=== PATIENT | female | born 1965 | race Caucasian/White ===

== ENCOUNTER 2020-07-07 18:09 | Inpatient (IN) | payer MEDICARE ==
[~2020-07-07] VITALS: Ht 167.6 cm; Wt 75.3 kg
--- NOTE | 2020-07-07 19:20 | NUR ---
ASSUMED CARE. BIBMARCELLUS FROM [facility] C/O AGITATION. PT AAOX3, NO ACUTE DISTRESS NOTED, RESP EVEN AND UNLABORED. 1:1 SITTER AT BEDSIDE FOR PT SAFETY. PT CALM AND COOPERATIVE AT THIS TIME.
[2020-07-07 19:25] LABS: BASOPHILS % (AUTO) 0.7 % (0.0-2.0); EOSINOPHILS % (AUTO) 2.1 % (0.0-6.0); HEMATOCRIT 40 % (33-45); HEMOGLOBIN 13.3 g/dL (11.5-14.8); LYMPHOCYTES # (AUTO) 1.6 /CMM (0.8-4.8); LYMPHOCYTES % (AUTO) 30.3 % (20.0-44.0); MEAN CORPUSCULAR HGB CONC 33 g/dl (31.0-36.0); MEAN CORPUSCULAR VOLUME 96 fL (82-100); MONOCYTES # (AUTO) 0.4 /CMM (0.1-1.30); MONOCYTES % (AUTO) 6.7 % (2.0-12.0); NEUTROPHILS # (AUTO) 3.2 /CMM (1.8-8.9); NEUTROPHILS % (AUTO) 60.2 % (43.0-81.0); PLATELET COUNT (AUTO) 186 /CMM (150-450); RED BLOOD CELL COUNT(AUTO) 4.17 MIL/uL (4.0-5.2); WHITE BLOOD COUNT (AUTO) 5.4 K/uL (4.3-11.0)
--- NOTE | 2020-07-07 19:36 | NUR ---
FOOD TRAY PROVIDED TO PT PER PT REQUEST.
[2020-07-07 19:37] LABS: CALCIUM, SERUM 9.8 mg/dL (8.5-10.1); CARBON DIOXIDE 30 mmol/L (21-32); CHLORIDE 108 mmol/L (98-107); CREATININE 1.1 mg/dL (0.6-1.3); GLUCOSE 113 mg/dL (74-106); POTASSIUM 3.8 mmol/L (3.5-5.1); SODIUM SERUM 143 mmol/L (136-145); UREA NITROGEN, BLOOD 16 mg/dL (7-18)
[2020-07-07 19:42] LABS: ALANINE AMINOTRANSFERASE 26 U/L (12-78); ALBUMIN 3.5 g/dL (3.4-5.0); ALCOHOL, BLOOD < 3 mg/dL (0-0); ALKALINE PHOSPHATASE 53 U/L (46-116); ASPARTATE AMINOTRANSFERASE 18 U/L (15-37); BILIRUBIN,DIRECT 0.1 mg/dL (0.0-0.2); BILIRUBIN,TOTAL 0.3 mg/dL (0.2-1.0); TOTAL PROTEIN, SERUM 6.5 g/dL (6.4-8.2)
[2020-07-07 19:43] LABS: ACETAMINOPHEN 0 ug/ml (10-30)
--- NOTE | 2020-07-07 19:45 | NUR ---
COVID SWAB TEST DONE AND SENT TO LAB
--- NOTE | 2020-07-07 20:24 | NUR ---
call from lab, rapid covid negative.
--- NOTE | 2020-07-07 21:29 | NUR ---
KRIS KISS SETTER HAND AT BEDSIDE TO NESTOR SMITH
--- NOTE | 2020-07-07 21:42 | NUR ---
SUNI 214-2
--- NOTE | 2020-07-07 22:02 | NUR ---
REPORT GIVEN TO CHRISTIAN ARRIAZA FOR CINDY
[2020-07-08 00:20] VITALS: BP 138/80
--- NOTE | 2020-07-08 00:20 | NUR ---
GPS RN-NOTE: ADMISSION ADMITTED A 55 YR OLD FEMALE, FROM [facility] TO [facility] ER TO GPS UNIT. UPON EVALUATION IN ER PATIENT WAS VISIBLE UPSET & FRUSTRATED. PT. DID NOT RESPOND TO QUESTIONS PRESENTED. PER REFERRAL FROM [facility], PT. IS HAVING INCREASING AGITATION, VERBALLY ABUSIVE TOWARDS STAFF, SCREAMING & YELLING, TRYING TO ELOPE FROM FACILITY & RUNNING DOWN THE HALLWAYS. UPON FACE TO FACE ASSESSMENT, PT. IS A & O X 2, CONFUSED & FORGETFUL, AGGRESSIVE, UNCOOPERATIVE, REFUSES TO ANSWER MOST OF THE QUESTIONS DURING INTERVIEW. BLUNTED AFFECT, DELAYED SPEECH, ANXIOUS, EASILY AGITATED, FRUSTRATED, WANTED TO BE LEFT ALONE, DENIES SI/HI/AVH AT THIS TIME. CONTINENT. AMBULATORY WITH WALKER & STAND BY ASSIST, UNSTEADY GAIT, FALL RISK. PT. REFUSED SKIN ASSESSMENT & FACE PICTURE, GOT VERY AGITATED & PULLED BLANKETS OVER HER FACE. MED RECON DONE BY DR. EDGE. MRSA & COVID 19 WAS DONE IN ER. PT'S RIGHTS HANDBOOK AND A GUIDE TO PRESCRIPTION MEDICATIONS GIVEN. IN NO APPARENT DISTRESS. BELONGINGS WERE INVENTORIED AND CHECKED FOR CONTRABAND. PT. IS UNDER CARE OF PSYCHIATRIC DR. CAVAZOS AND THE MEDICAL CARE OF DR. EDGE. BED LOCKED AND PLACED IN LOWEST POSITION TO MAINTAIN SAFETY. BED ALARM ON. FALL PRECAUTIONS IMPLEMENTED. PER PATIENT THERE IS NO ONE TO NOTIFY ABOUT HER ADMISSION AT [facility]. WILL CONTINUE TO MONITOR Q15 MINS. FOR SAFETY AND BEHAVIOR.
--- NOTE | 2020-07-08 00:28 | NUR ---
PT TRANSFERRED TO ROOM IN STABLE CONDITION
[2020-07-08] MEDS ORDERED: MAG HYDROX/AL HYDROX/SIMETH 30 ML UDC PO PRN (00:30)
[2020-07-08] MEDS ORDERED: TEMAZEPAM 7.5 MG CAPSULE PO PRN (00:30)
[2020-07-08] MEDS ORDERED: MAGNESIUM HYDROXIDE 30 ML UDC PO PRN (00:30)
[2020-07-08] MEDS ORDERED: RISP2TAB5 PO (00:43)
[2020-07-08] MEDS ORDERED: LIDOCAINE PATCH (00:43)
[2020-07-08] MEDS ORDERED: LORA-259 PO (00:43)
[2020-07-08] MEDS ORDERED: IBUP-1953 PO (00:43)
[2020-07-08] MEDS ORDERED: GABA-536 PO (00:43)
[2020-07-08] MEDS ORDERED: LIDOCAINE 4% PATCH (00:43)
[2020-07-08] MEDS ORDERED: ALEN70TA3 PO (00:43)
[2020-07-08] MEDS ORDERED: BLOOD SUGAR DIAGNOSTIC 1 EACH STRIP IN ONE (01:00)
--- NOTE | 2020-07-08 01:10 | NUR ---
GPS RN NOTE PT WAS ORDERED FOR UNSTEADY GAIT. PATIENT IS SLEEPING COMFORTABLY AT THIS TIME.
--- NOTE | 2020-07-08 06:54 | NUR ---
GPS RN NOTE CALLED [phone] NUMBER AVAILABLE ON FACE SHEET & SPOKE TO MORELIA AT [facility] & MORELIA STATED THAT PATIENT WAS DISCHARGED TO ANOTHER PLACE FEW DAYS AGO. THERE IS NO OTHER NUMBER GIVEN TO NOTIFY REGARDING PATIENT'S ADMISSION AT [facility], GPS UNIT. PATIENT ALSO STATED," THERE IS NO ONE TO CALL TO NOTIFY." WILL CONTINUE TO MONITOR.
[2020-07-08] MEDS: GABAPENTIN 400 MG CAPSULE PO SCH ×3 (08:57→17:36)
[2020-07-08] MEDS: IBUPROFEN 400 MG TABLET PO PRN (09:03)
--- NOTE | 2020-07-08 09:04 | NUR ---
GIVEN MOTRIN FOR RT. HIP PAIN AND BACK PAIN.
[2020-07-08] MEDS: LORAZEPAM 0.5 MG TABLET PO PRN (09:44)
--- NOTE | 2020-07-08 09:44 | NUR ---
aston crespo for anxiety,sobbing almost continually.on phone
[2020-07-08] MEDS: risperiDONE 1 MG TABLET PO SCH ×2 (15:02→17:00)
[2020-07-08 16:18] VITALS: BP 124/75
--- NOTE | 2020-07-08 16:42 | NUR ---
home med of risperdal started.
--- NOTE | 2020-07-08 18:56 | NUR ---
eve. pereyra held as pt. groggy to lethargic.hob elevated resp. even and unlabored.skin warm and dry.
--- NOTE | 2020-07-09 07:00 | NUR ---
precision devices inspector/tester notes pt remains sleeping comfortably in bed without any distress or any discomfort noted. she refused to have draw blood test today even i explained what the purpose of it . no signs of any behaviora outburst noted throughout the night. she's calmed and quiet. kept her warm and comfortable at all times. will continue Q 15 minutes monitoring for safety and behavior. will endorse to am nurse for continuity of care.
[2020-07-09] MEDS: LORAZEPAM 0.5 MG TABLET PO PRN ×2 (07:47→14:05)
--- NOTE | 2020-07-09 07:49 | NUR ---
RN NOTE- ANXIOUS TEARFUL RESTLESS. ATIVAN 0.5 MG GIVEN
[2020-07-09] MEDS: GABAPENTIN 400 MG CAPSULE PO SCH ×3 (08:15→16:32)
[2020-07-09] MEDS: risperiDONE 1 MG TABLET PO SCH ×2 (08:15→16:32)
--- NOTE | 2020-07-09 08:45 | NUR ---
RN NOTE-ATIVAN 0.5 MG RELIEVED PTS ANXIETY. PT CALM
--- NOTE | 2020-07-09 09:00 | NUR ---
RN NOTE- PT ALERT ORIENTED TO SELF, DISORGANIZED, CONFUSED LABILE CRYING AND IRRITABLE. MED COMPLIANT PO INTAKE FAIR
--- NOTE | 2020-07-09 14:05 | NUR ---
RN NOTE- C/O ANXIOUS RESTLESS FEELING, REQUESTING PRN RX. ATIVAN 0.5 MG GIVEN
[2020-07-09 16:00] VITALS: BP 150/64
--- NOTE | 2020-07-09 19:46 | NUR ---
GPS RN OPENING NOTES PATIENT RECEIVED RESTING IN BED COMFORTABLY; A/OX2, BREATHING EVEN AND UNLABORED; NO SOB NOTED; TOLERATING ROOM AIR WELL; PATIENT EASILY AGITATED, REFUSES TO ANSWER QUESTIONS/UNCOOPERATIVE AT TIMES; PATIENT REFUSING SKIN ASSESSMENT; CHARGE NURSE AWARE; PATIENT EDUCATED ON USE OF CALL LIGHT; SAFETY PRECAUTIONS IMPLEMENTED; BED LOCKED IN LOW POSITION; SIDE RAILSX2; WILL CONTINUE TO MONITOR Q15 MINS WITH THE HELP OF STAFF TO MAINTAIN SAFETY
[2020-07-09 20:00] VITALS: BP 122/77
[2020-07-10] MEDS: LORAZEPAM 0.5 MG TABLET PO PRN ×2 (07:16→14:36)
[2020-07-10] MEDS: IBUPROFEN 400 MG TABLET PO PRN (07:16)
--- NOTE | 2020-07-10 07:17 | NUR ---
RN NOTE- PT W C/O BACK PAIN AND ANXIETY. MOTRIN 400 MG AND ATIVAN 0.5 MG GIVEN
[2020-07-10 08:00] VITALS: BP 147/85
[2020-07-10] MEDS: risperiDONE 1 MG TABLET PO SCH ×2 (08:07→16:26)
[2020-07-10] MEDS: GABAPENTIN 400 MG CAPSULE PO SCH ×3 (08:07→16:26)
--- NOTE | 2020-07-10 08:30 | NUR ---
RN NOTE- PT CALMER, MEDICATIONS EFFECTIVE. QUIET IN ROOM.
--- NOTE | 2020-07-10 09:00 | NUR ---
RN NOTE- UNCHANGED, MOVED PT TO ANOTHER ROOM PREVIOUS ROOM MATE KEEPING HER AWAKE, PT ALERT ORIENTED TO SELF, DISORGANIZED, CONFUSED LABILE CRYING AND IRRITABLE. MED COMPLIANT PO INTAKE FAIR
--- NOTE | 2020-07-10 11:45 | NUR ---
RN NOTE- DR MACY LUA [facility] MED W PT. PT BECAME AGITATED AND YELLING SCREAMING AND POSTURING. PT YELLED AT THIS RN, 'JUST GIVE ME A SHOT" ZYPREXA 5 MG IM ORDERED.
--- NOTE | 2020-07-10 11:59 | NUR ---
RN NOTE- ZYPREXA 5 MG IM GIVEN . PT PASSIVE, LAY DOWN ON BED. STAFF AT SIDE TO ASSIST. TOLERATED WELL.
[2020-07-10] MEDS ORDERED: OLANZAPINE 10 MG VIAL IM ONE (12:00)
--- NOTE | 2020-07-10 12:46 | NUR ---
RN NOTE- PT CALMER , QUIET IN ROOM EATING FOOD. DIRECTABLE
--- NOTE | 2020-07-10 14:36 | NUR ---
RN NOTE- INCREASING AGITATION, TEARFULNESS , YELLING AT STAFF. ATIVAN 0.5 MG GIVEN
--- NOTE | 2020-07-10 14:37 | NUR ---
SNF Contact: SW contacted Jeison ([phone]) from [facility] and inquired about whether the pt can return to the facility. He stated he will inform the SW the following day.
--- NOTE | 2020-07-10 14:37 | NUR ---
Initial Discharge Plan: Pt currently resides at [facility] located at [id number] [place] [id number]; . Per pt, she would like to go back. SW will work with the pt and the MD regarding appropriate discharge planning. SW will form a safe and proper discharge.
[2020-07-10] MEDS ORDERED: LORAZEPAM 0.5 MG TABLET PO STA (14:44)
[2020-07-10 16:01] VITALS: BP 133/51
--- NOTE | 2020-07-10 16:09 | NUR ---
Individual Intervention with the Pt: RADHA met with the pt at bedside and called the [facility] ([phone]) to inquire about her social security checks. RADHA spoke to Alexandre in the criminal justice social worker department and he stated that the pts payee handles all of her finances and that the pt does not have any checks at the facility.
[2020-07-10] MEDS: BENZTROPINE MESYLATE (1 MG) 1 MG TABLET PO SCH (16:26)
[2020-07-10] MEDS: OXCARBAZEPINE 150 MG TABLET PO SCH (16:26)
[2020-07-10 19:52] VITALS: BP 121/80
[2020-07-11 08:00] VITALS: BP 127/60
[2020-07-11] MEDS: GABAPENTIN 400 MG CAPSULE PO SCH ×3 (08:11→17:42)
[2020-07-11] MEDS: risperiDONE 1 MG TABLET PO SCH ×2 (08:12→17:43)
[2020-07-11] MEDS: OXCARBAZEPINE 150 MG TABLET PO SCH ×3 (08:12→17:43)
[2020-07-11] MEDS: BENZTROPINE MESYLATE (1 MG) 1 MG TABLET PO SCH ×2 (08:12→17:42)
[2020-07-11] MEDS ORDERED: LORAZEPAM INJ 2 MG/ML VIAL IM STA (09:00)
[2020-07-11] MEDS ORDERED: HALOPERIDOL LACTATE INJ 5 MG/ML VIAL IM STA (09:00)
[2020-07-11] MEDS ORDERED: BENZTROPINE MESYLATE (2MG/2ML) 2 MG/2 ML AMPUL IM STA (09:00)
--- NOTE | 2020-07-11 09:05 | NUR ---
RN NOTE:PATIENT AGITATED ,CRYING AND HITTING HERSELF IN THE ROOM ,NOT FOLLOWING DIRECTIONS ,OFFER 1:1 ,OFFER ATIVAN PO PATIENT REFUSED ,DR. CAVAZOS NOTIFIED WITH NEW ORDER HALDOL 5MG IM AND ATIVAN 2MG IM COGENTIN 1MG IM ,ALL ORDERS CARRIED OUT PATIENT VOLUNTARILY ACCEPT THE INJECTION STATED "GIVE ME MY SHOT".WILL CONTINUE TO MONITOR .
[2020-07-11] MEDS: ACETAMINOPHEN 325 MG TABLET PO PRN (09:14)
[2020-07-11] MEDS: LORAZEPAM 1 MG TABLET PO SCH ×2 (11:51→19:22)
--- NOTE | 2020-07-11 13:56 | NUR ---
Individual Intervention with the Pt: SW met with the pt at bedside and informed her that her Payee cannot mail her checks to the hospital because we do not know how long she will be in the hospital and how we can make sure that she gets her money. Pt became agitated with the SW and repeatedly stated that she will not go back to the halfway that she came from and instead will go to [place]. She stated that if she does not get her money then the hospital will have to figure out her transportation.
--- NOTE | 2020-07-11 14:22 | NUR ---
SNF Contact: RADHA contacted Jeison ([phone]) from [facility] who stated that the facility does not want the pt to return per their DON. Jeison stated that the pt has plenty of days left and should be able to get placed an alternate facility. RADHA stated that she will attempt to place her elsewhere.
[2020-07-11 16:00] VITALS: BP 135/88
[2020-07-11 19:44] VITALS: BP 153/72
[2020-07-12 03:12] VITALS: BP 114/69
[2020-07-12] MEDS: LORAZEPAM 1 MG TABLET PO SCH ×3 (03:22→19:56)
[2020-07-12 08:00] VITALS: BP 102/57
[2020-07-12] MEDS: BENZTROPINE MESYLATE (1 MG) 1 MG TABLET PO SCH ×2 (08:01→17:36)
[2020-07-12] MEDS: OXCARBAZEPINE 150 MG TABLET PO SCH ×3 (08:01→17:36)
[2020-07-12] MEDS: risperiDONE 1 MG TABLET PO SCH ×2 (08:01→17:35)
[2020-07-12] MEDS: LORAZEPAM 1 MG TABLET PO PRN (08:02)
[2020-07-12] MEDS: GABAPENTIN 400 MG CAPSULE PO SCH ×3 (08:02→17:35)
--- NOTE | 2020-07-12 08:02 | NUR ---
RN NOTE: PATIENT IRRITABLE AND ANXIOUS MEDICATED WITH ATIVAN 1MG PO X1 WILL CONTINUE TO MONITOR .
--- NOTE | 2020-07-12 15:08 | NUR ---
SNF Referral: RADHA faxed a referral to [facility] with attention to Adi to the fax number: [phone].
[2020-07-12 16:00] VITALS: BP 121/95
[2020-07-12 20:00] VITALS: BP 120/77
[2020-07-13] MEDS: LORAZEPAM 1 MG TABLET PO SCH ×3 (03:32→19:27)
[2020-07-13 06:45] LABS: BASOPHILS % (AUTO) 0.7 % (0.0-2.0); EOSINOPHILS % (AUTO) 1.9 % (0.0-6.0); HEMATOCRIT 42 % (33-45); LYMPHOCYTES # (AUTO) 1.2 /CMM (0.8-4.8); LYMPHOCYTES % (AUTO) 29.9 % (20.0-44.0); MEAN CORPUSCULAR HGB CONC 33 g/dl (31.0-36.0); MEAN CORPUSCULAR VOLUME 94 fL (82-100); MONOCYTES # (AUTO) 0.3 /CMM (0.1-1.30); MONOCYTES % (AUTO) 8.6 % (2.0-12.0); NEUTROPHILS # (AUTO) 2.3 /CMM (1.8-8.9); NEUTROPHILS % (AUTO) 58.9 % (43.0-81.0); PLATELET COUNT (AUTO) 159 /CMM (150-450); RED BLOOD CELL COUNT(AUTO) 4.46 MIL/uL (4.0-5.2)
[2020-07-13 07:44] LABS: ALBUMIN 3.3 g/dL (3.4-5.0); BILIRUBIN,TOTAL 0.4 mg/dL (0.2-1.0); CALCIUM, SERUM 9.9 mg/dL (8.5-10.1); CREATININE 0.9 mg/dL (0.6-1.3); POTASSIUM 4.2 mmol/L (3.5-5.1); TOTAL PROTEIN, SERUM 6.2 g/dL (6.4-8.2)
[2020-07-13 08:00] VITALS: BP 116/88
[2020-07-13] MEDS: ALENDRONATE 70 MG TABLET PO SCH (08:21)
[2020-07-13] MEDS: risperiDONE 1 MG TABLET PO SCH ×2 (08:25→16:38)
[2020-07-13] MEDS: BENZTROPINE MESYLATE (1 MG) 1 MG TABLET PO SCH ×2 (08:26→16:37)
[2020-07-13] MEDS: ACETAMINOPHEN 325 MG TABLET PO PRN (08:26)
[2020-07-13] MEDS: GABAPENTIN 400 MG CAPSULE PO SCH ×3 (08:26→16:37)
[2020-07-13] MEDS: OXCARBAZEPINE 150 MG TABLET PO SCH ×3 (08:26→16:37)
--- NOTE | 2020-07-13 08:30 | NUR ---
GPS/RN-NOTES PATIENT REQUESTING TYLENOL FOR HEADACHE, TYLENOL 650MG P.O GIVEN PRN ORDER.
[2020-07-13] MEDS ORDERED: ALENDRONATE 70 MG TABLET PO SCH (09:00)
[2020-07-13 16:00] VITALS: BP 134/56
[2020-07-13 20:02] VITALS: BP_SYST 112; BP_SYST 122; BP_DIAS 65; BP_DIAS 67
[2020-07-14] MEDS: LORAZEPAM 1 MG TABLET PO SCH ×3 (03:04→19:17)
--- NOTE | 2020-07-14 06:31 | NUR ---
GPS RN NOTES: PT. RESTING IN HER ROOM, NO S/S OF DISTRESS NOTED ,NO CHANGE OF CONDITION NOTED , ALL CARE NEEDS MET ANTICIPATED. MED COMPLIANT , ANXIOUS EASILY AGITAED PARANOID, DISHELVED ,NEEDY DEMENDING, FORGETFUL ,NEEDS FREQUENTLY REDIRECTIONS ,WILL CONTINUE TO MONITOR FOR SAFETY BEHAVIOR, AND ENDORSE TO AM SHIFT FOR CONTINUITY OF CARE.
[2020-07-14 07:57] VITALS: BP 136/75
[2020-07-14] MEDS: BENZTROPINE MESYLATE (1 MG) 1 MG TABLET PO SCH ×2 (08:41→17:18)
[2020-07-14] MEDS: OXCARBAZEPINE 150 MG TABLET PO SCH ×3 (08:41→17:19)
[2020-07-14] MEDS: risperiDONE 1 MG TABLET PO SCH ×2 (08:42→17:18)
[2020-07-14] MEDS: GABAPENTIN 400 MG CAPSULE PO SCH ×3 (08:43→17:19)
--- NOTE | 2020-07-14 12:55 | NUR ---
SNF Contact: Phoebe ([phone]) from [facility] called the SW and stated that the pt was accepted to their facility.
--- NOTE | 2020-07-14 12:57 | NUR ---
Individual Intervention with the pt: SW informed the pt that she was accepted to [facility] and informed her that she will be discharged on Friday.
--- NOTE | 2020-07-14 15:00 | NUR ---
SNF Contact: Laura ([phone]) from [facility] contacted the and stated that they are reviewing the referral.
--- NOTE | 2020-07-14 15:01 | NUR ---
SNF Contact: Remy ([phone]) from [facility] stated that he received the referral for the pt and that he would like updated notes. ARDHA faxed updated notes to [phone].
[2020-07-14 16:00] VITALS: BP 145/98
[2020-07-14 19:46] VITALS: BP 131/64
[2020-07-15] MEDS: LORAZEPAM 1 MG TABLET PO SCH ×3 (03:02→19:34)
[2020-07-15] MEDS: ACETAMINOPHEN 325 MG TABLET PO PRN (06:53)
--- NOTE | 2020-07-15 06:54 | NUR ---
GPS RN NOTE: PAIN PT. C/O OF NECK PAIN. ADMINISTERED TYLENOL 650 MG PO PRN ORDERED. WILL CONTINUE TO MONITOR.
[2020-07-15 08:00] VITALS: BP 131/64
[2020-07-15] MEDS: GABAPENTIN 400 MG CAPSULE PO SCH ×3 (08:37→16:34)
[2020-07-15] MEDS: BENZTROPINE MESYLATE (1 MG) 1 MG TABLET PO SCH ×2 (08:38→16:34)
[2020-07-15] MEDS: risperiDONE 1 MG TABLET PO SCH ×2 (08:38→16:34)
[2020-07-15] MEDS: OXCARBAZEPINE 150 MG TABLET PO SCH ×3 (08:38→16:34)
[2020-07-15 16:00] VITALS: BP 122/96
[2020-07-15 20:43] VITALS: BP 129/69
[2020-07-16] MEDS: LORAZEPAM 1 MG TABLET PO SCH ×3 (03:07→18:59)
[2020-07-16] MEDS: TRAMADOL HCL 50 MG TABLET PO PRN (06:25)
--- NOTE | 2020-07-16 06:27 | NUR ---
GPS RN NOTE: PAIN PT. C/O OF HIP PAIN 07/01. ADMINISTERED TRAMADOL 50 MG PO PRN ORDERED. WILL CONTINUE TO MONITOR.
[2020-07-16 08:00] VITALS: BP 122/74
[2020-07-16] MEDS: GABAPENTIN 400 MG CAPSULE PO SCH ×3 (08:47→16:14)
[2020-07-16] MEDS: BENZTROPINE MESYLATE (1 MG) 1 MG TABLET PO SCH ×2 (08:47→16:14)
[2020-07-16] MEDS: OXCARBAZEPINE 150 MG TABLET PO SCH ×3 (08:47→16:14)
[2020-07-16] MEDS: risperiDONE 1 MG TABLET PO SCH ×2 (08:47→16:15)
[2020-07-16 16:00] VITALS: BP 121/63
[2020-07-16 20:07] VITALS: BP 133/61
--- NOTE | 2020-07-16 20:48 | NUR ---
GPS RN NOTE: REFUSED SKIN ASSESSMENT PT IS A/O X2, LABILE MOOD, EASILY AGITATED, PT STATED SHE WAS TIRED AND WANTED TO REST AND NOT BOTHERED, REFUSED SKIN ASSESSMENT. WILL CONTINUE TO MONITOR Q15MIN FOR SAFETY AND BEHAVIOR.
[2020-07-17] MEDS: LORAZEPAM 1 MG TABLET PO SCH ×3 (02:26→19:24)
[2020-07-17] MEDS: TRAMADOL HCL 50 MG TABLET PO PRN (05:10)
--- NOTE | 2020-07-17 05:10 | NUR ---
GPS RN NOTE: PAIN PT WAS C/O OF 03/31 HIP PAIN, REQUESTED TRAMADOL, ADMIN TRAMADOL @ 0510, WILL REASSESS AND CONTINUE TO MONITOR Q15MIN.
[2020-07-17 08:00] VITALS: BP 130/74
--- NOTE | 2020-07-17 08:00 | NUR ---
GPS RN NOTE received PT AWAKE ALERT AND ORIENTED X2.NOTED TO BE EASILY IRRITABLE AND ANXIOUS. IS A/O X2, PROVIDED WITH LENIN ENVIRONMENT, AND DISTRACTION. NO CARDIAC OR RESP DISTRESS NOTED. NO SOB NOTED. SATURATING WELL ON RA. AMBULATORY WITH STEADY GAIT. WILL CONTINUE TO MONITOR Q15MIN FOR SAFETY AND BEHAVIOR.
[2020-07-17] MEDS: BENZTROPINE MESYLATE (1 MG) 1 MG TABLET PO SCH ×2 (08:23→16:40)
[2020-07-17] MEDS: risperiDONE 1 MG TABLET PO SCH ×2 (08:23→16:39)
[2020-07-17] MEDS: OXCARBAZEPINE 150 MG TABLET PO SCH ×3 (08:23→16:40)
[2020-07-17] MEDS: GABAPENTIN 400 MG CAPSULE PO SCH ×3 (08:23→16:39)
[2020-07-17] MEDS: LORAZEPAM 1 MG TABLET PO PRN ×2 (08:24→15:41)
--- NOTE | 2020-07-17 09:00 | NUR ---
ATIVAN 1MG PO ADMINISTERED PT NOTED TO BE VERY ANXIOUS, SHE KEEP PACING AND CRYING. KEEPS STATING THAT SHE WANTS TO GO HOME. EVEN THOUGH IT WAS ALREADY EXPLAINED TO HER THAT THIS DECISION IS UP TO THE DOCTOR. PT KEEPS YELLING AND SCREAMING. PRN ATIVAN ADMINISTERED. PROVIDED DISTRACTION TO PT AND ENCOURAGED TO PARTICIPATE IN ACTIVITIES.
[2020-07-17 16:00] VITALS: BP_SYST 111; BP_SYST 121; BP_DIAS 66; BP_DIAS 74
[2020-07-17 19:54] VITALS: BP 134/89
[2020-07-18] MEDS: TRAMADOL HCL 50 MG TABLET PO PRN (00:43)
--- NOTE | 2020-07-18 00:43 | NUR ---
GPS RN NOTE: PAIN PT C/O OF 05/01 LOWER BACK PAIN, TEARFUL, RESTLESS, REQUESTED TRAMADOL, ADMIN TRAMADOL PRN @ 0043. WILL REASSESS AND CONTINUE TO MONITOR Q15MIN FOR SAFETY AND BEHAVIOR
[2020-07-18] MEDS: LORAZEPAM 1 MG TABLET PO SCH ×5 (02:01→21:18)
[2020-07-18] MEDS: IBUPROFEN 400 MG TABLET PO PRN (06:28)
--- NOTE | 2020-07-18 06:28 | NUR ---
GPS RN NOTE: PAIN PT C/O OF 05/01 LOWER BACK PAIN REQUESTED MOTRIN, ADMIN 400MG IBUPROFEN PRN, WILL REASSESS AND CONTINUE TO MONITOR Q15MIN FOR SAFETY AND BEHAVIOR.
[2020-07-18 08:00] VITALS: BP 139/85
--- NOTE | 2020-07-18 08:06 | NUR ---
RADHA Discharge Note: Patient will be discharged to retirement facility, [facility] [address] [place] [address] ([phone]) via ambulance transportation at 12pm. RADHA spoke with Adi at the facility who states they are ready to accept the patient today. Pt does not have any supportive contact. Patient is alert and oriented x3-4, and is unable to plan for self-care, however, patient is willing to accept care provided at the facility. Patient denies suicidal or homicidal ideation. Patient is aware and agreeable with discharge plans. Patient will continue to follow-up with his Psychiatrist Dr. Brown and Rubberizing Mechanic Dr. Bonilla at [facility]. Patient presented with euthymic mood and congruent affect. Addendum: 07/18/20 at 1043 by RADHA KENNEDY Canceled dc
[2020-07-18] MEDS: GABAPENTIN 400 MG CAPSULE PO SCH ×3 (08:11→17:34)
[2020-07-18] MEDS: BENZTROPINE MESYLATE (1 MG) 1 MG TABLET PO SCH ×2 (08:11→17:34)
[2020-07-18] MEDS: OXCARBAZEPINE 150 MG TABLET PO SCH ×3 (08:11→17:35)
[2020-07-18] MEDS: risperiDONE 1 MG TABLET PO SCH ×2 (08:12→17:35)
[2020-07-18] MEDS: LORAZEPAM 1 MG TABLET PO PRN (08:47)
--- NOTE | 2020-07-18 08:52 | NUR ---
PRN ATIVAN MISTAKENLY DC'D AND DR. CAVAZOS CALLED AT THIS TIME FOR A PRN ATIVAN,PT. ANXIOUS.1 MG ATIVAN GIVEN AT THIS TIME.
--- NOTE | 2020-07-18 12:57 | NUR ---
given 11 am ativan at this time.
[2020-07-18 16:00] VITALS: BP 140/87
--- NOTE | 2020-07-18 18:35 | NUR ---
PT. NEVILLE,BUT STATES SHE FEELS BETTER MEDICATION STEPHEN.
[2020-07-18 20:04] VITALS: BP 128/72
[2020-07-19] MEDS: TRAMADOL HCL 50 MG TABLET PO PRN ×2 (05:59→14:13)
--- NOTE | 2020-07-19 06:00 | NUR ---
GPS-RN NOTE: LOWER BACK PAIN PATIENT C/O LOWER BACK PAIN ON A PAIN SCALE OF 7/10. ADMINISTERED TRAMADOL 50MG PO ORDERED. WILL CONTINUE TO REASSESS.
[2020-07-19 08:00] VITALS: BP 138/87
[2020-07-19] MEDS: LORAZEPAM 1 MG TABLET PO SCH ×4 (08:34→21:01)
[2020-07-19] MEDS: GABAPENTIN 400 MG CAPSULE PO SCH ×3 (08:35→17:08)
[2020-07-19] MEDS: risperiDONE 1 MG TABLET PO SCH ×3 (08:35→17:09)
[2020-07-19] MEDS: BENZTROPINE MESYLATE (1 MG) 1 MG TABLET PO SCH ×2 (08:35→17:08)
[2020-07-19] MEDS: OXCARBAZEPINE 150 MG TABLET PO SCH ×3 (08:37→17:08)
[2020-07-19] MEDS: LORAZEPAM 1 MG TABLET PO PRN (09:47)
--- NOTE | 2020-07-19 09:48 | NUR ---
GIVEN ATIVAN FOR ANXIETY.
--- NOTE | 2020-07-19 13:40 | NUR ---
RADHA Individual Intervention: This health underwriter met with pt to discuss discharge/facility options. Pt agrees to go to [facility]. Pt appeared calm and cooperative. Pt was less anxious and was understanding.
--- NOTE | 2020-07-19 13:57 | NUR ---
dr. glez in and discussed pt. leaving,rn informed dr. glez that pt. had a rather long crying jag this am.dc delayed.
--- NOTE | 2020-07-19 14:15 | NUR ---
GIVEN ULTAM FOR BACK PAIN.
[2020-07-19 16:00] VITALS: BP 109/77
[2020-07-19 19:42] VITALS: BP 129/85
[2020-07-20] MEDS: TRAMADOL HCL 50 MG TABLET PO PRN (06:33)
--- NOTE | 2020-07-20 06:34 | NUR ---
GPS RN NOTE: PAIN PT C/O OF 05/01 LOWER BACK PAIN REQUESTED TRAMADOL, VSS, ADMIN TRAMADOL PRN @ 0633, WILL REASSESS AND CONTINUE TO MONITOR Q15MIN FOR SAFETY AND BEHAVIOR.
[2020-07-20] MEDS: ALENDRONATE 70 MG TABLET PO SCH (07:37)
[2020-07-20 08:00] VITALS: BP 124/76
[2020-07-20] MEDS: GABAPENTIN 400 MG CAPSULE PO SCH ×2 (08:21→12:38)
[2020-07-20] MEDS: risperiDONE 1 MG TABLET PO SCH ×2 (08:21→12:38)
[2020-07-20] MEDS: BENZTROPINE MESYLATE (1 MG) 1 MG TABLET PO SCH (08:21)
[2020-07-20] MEDS: LORAZEPAM 1 MG TABLET PO SCH ×2 (08:21→12:38)
[2020-07-20] MEDS: OXCARBAZEPINE 150 MG TABLET PO SCH ×2 (08:21→12:38)
--- NOTE | 2020-07-20 10:18 | NUR ---
RADHA Discharge Note: Patient will be discharged to [facility] facility, [facility] [address] [place] [address] ([phone]) via ambulance transportation at 1pm. RADHA spoke with Adi at the facility who states they are ready to accept the patient today. Pt does not have any supportive contact. Patient is alert and oriented x3-4, and is unable to plan for self-care, however, patient is willing to accept care provided at the facility. Patient denies suicidal or homicidal ideation. Patient is aware and agreeable with discharge plans. Patient will continue to follow-up with his Psychiatrist Dr. Garcia and Crab Butcher Dr. Mckenna at [facility]. Patient presented with euthymic mood and congruent affect.
--- NOTE | 2020-07-20 11:29 | NUR ---
Dr. Brown gave an order to D/C hold and D/C to Center at [facility], to continue routine meds including prn and pt. to follow up with psych and medical doctors
--- NOTE | 2020-07-20 13:14 | NUR ---
GLAZE CARRIER NOTE Patient is cleared for discharged per MD. DC instructions provided and patient verbalized understanding. Patient remains stable, A/Ox3, cooperative, able to ambulate. All patient needs met, all due medications given, patient is independent with care, kept clean and dry. Patient refuses skin assessment. All belongings are with the patient. Called to [facility] 4 times and was put on hold for over 20 minutes each time, was not able to give report to RN at facility, SW aware, and per : facility will call to receive report. Patient picked up by EMS en route to [facility]. Addendum: 07/20/20 at 1431 by RITA LUU RN TELEPHONE REPORT GIVEN TO SOLITARIO GONZALES AT [facility].
== END 2020-07-20 13:25 | DRG 885 ==
LOC: ER 18:21 → GPS 21:58
PROVIDERS: ADMIT Psychiatry & Neurology Psychiatry
DX: F25.0 Schizoaffective disorder, bipolar type (principal); F01.50 Vascular dementia, unspecified severity, without behavioral disturbance, psychotic disturbance, mood disturbance, and anxiety; I69.359 Hemiplegia and hemiparesis following cerebral infarction affecting unspecified side; J44.9 Chronic obstructive pulmonary disease, unspecified; G89.29 Other chronic pain; G62.9 Polyneuropathy, unspecified; M81.0 Age-related osteoporosis without current pathological fracture; F29 Unspecified psychosis not due to a substance or known physiological condition
CPT/HCPCS: 36415; 80048-TC; 80053-TC; 80076-TC; 82962-TC; 85025-TC; 87081-TC; 97116-TC; 97530-TC; C9803; G0480; J0515; J1630; J2060; J3490